=== PATIENT | female | born 1945 | race Caucasian/White ===

== ENCOUNTER 2020-04-18 02:18 | Emergency (ER) | payer MEDICARE, MEDICAID ==
[~2020-04-18] VITALS: Ht 162 cm; Wt 77.0 kg
--- NOTE | 2020-04-18 03:58 | ED Fall/Injury ---
General Chief Complaint: Trauma-Non Activation Stated Complaint: FALL,LOWER BACK PAIN Source: patient Exam Limitations: no limitations History of Present Illness Date Seen by Provider: Apr 18, 2020 Time Seen by Provider: 02:21 Initial Comments This 75-year-old woman presents to the emergency room with complaints of [place] She was going through a handicapped entrance when her walker got hung up on the doorway. She does not recall striking her head and denies any head pain. There is no loss of consciousness. She denies any prodrome. She did not attempt to get up and walk after the fall. She arrives via EMS. Allergies and Home Medications Allergies Coded Allergies: No Known Drug Allergies (Unverified , 04/18/20) Patient Home Medication List Home Medication List Reviewed: Yes Review of Systems Review of Systems Constitutional: no symptoms reported Eyes: No Symptoms Reported Ears, Nose, Mouth, Throat: no symptoms reported Respiratory: no symptoms reported Cardiovascular: no symptoms reported Gastrointestinal: no symptoms reported Genitourinary: no symptoms reported : No Musculoskeletal: see HPI Skin: no symptoms reported Psychiatric/Neurological: No Symptoms Reported Past Tdnhudr-Slboex-Dbxjct Hx Past Med/Social Hx: Reviewed Nursing Past Med/Soc Hx Past Medical History Surgeries: Yes Breast (mastectomy) Respiratory: No Cardiac: No Neurological: No : No Genitourinary: No Gastrointestinal: No Musculoskeletal: No Endocrine: No HEENT: No Cancer: No Psychosocial: No Physical Exam Vital Signs Vital Signs - First Documented 04/18/20 04/18/20 02:20 04:26 Temp 37.0 Pulse 92 Resp 16 B/P (MAP) 177/98 (124) Pulse Ox 97 O2 Delivery Room Air Capillary Refill : Height, Weight, BMI Height: '" Weight: lbs. oz. 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, no motor/sensory deficits, alert, normal mood/affect, oriented x 3 Skin: normal color, warm/dry Baker Coma Score Best Eye Response: (4) Open Spontaneously Best Verbal Response: (5) Oriented Best Motor Response: (6) Obeys Commands Baker Total: 15 Progress/Results/Core Measures Results/Orders My Orders Orders - PRABHU GASPAR MD Ct Pelvis Wo (04/18/20 02:46) Ct Lumbar Spine Wo (04/18/20 02:46) Acetaminophen Tablet (Tylenol Tablet) (04/18/20 04:00) Ibuprofen Tablet (Motrin Tablet) (04/18/20 04:00) Vital Signs/I&O 04/18/20 04/18/20 02:20 04:26 Temp 37.0 37.0 Pulse 92 89 Resp 16 16 B/P (MAP) 177/98 (124) 152/89 (124) Pulse Ox 97 O2 Delivery Room Air Room Air Progress Progress Note : Progress Note CT imaging of the lumbar spine and pelvis revealed no fractures. Patient's pain was treated with ibuprofen and Tylenol and she was dismissed home. Diagnostic Imaging Diagonstic Imaging: CT Plain Films/CT/US/NM/MRI: pelvis, other Comments CT imaging of the pelvis and lumbar spine revealed no fractures. [facility] report reviewed. Departure Impression Primary Impression: Fall on same level Qualified Codes: W18.30XA - Fall on same level, unspecified, initial encounter Additional Impression: Low back pain Qualified Codes: M54.5 - Low back pain Disposition: 01 HOME, SELF-CARE Condition: Improved Departure-Patient Inst. Decision time for Depature: 03:57 Referrals: CHUCK CALVO DO (PCP) Primary Care Physician Patient Instructions: Contusion (DC), Low Back Pain (DC) Add. Discharge Instructions: You may ice affected areas in 20 minute intervals. You may take Tylenol and/or ibuprofen for pain. Follow-up with your primary care provider as needed for any further problems or concerns or for persistent pain. All discharge instructions reviewed with patient and/or family. Voiced understanding. PRABHU GASPAR MD Apr 18, 2020 03:58
[2020-04-18] MEDS ORDERED: IBUPROFEN TABLET 200 MG TAB PO ONE (04:00)
[2020-04-18] MEDS ORDERED: ACETAMINOPHEN 500 MG TAB (TYLENOL) PO ONE (04:00)
[2020-04-18 04:26] VITALS: BP 152/89
--- NOTE | 2020-04-18 07:42 | Diagnostic Imaging Report ---
PROCEDURE: CT lumbar spine without contrast. TECHNIQUE: Multiple contiguous axial images were obtained through the lumbar spine without the use of intravenous contrast. Sagittal and coronal reformations were then performed. Auto Exposure Controls were utilized during the CT exam to meet ALARA standards for radiation dose reduction. INDICATION: Right hip and low back pain post fall. CORRELATION STUDY: None FINDINGS: Rather significant leftward curvature of the lumbar spine. There is rightward subluxation L1 on L2 of approximately 14 mm. Slight asymmetric loss of height along the right aspect of L2 and left aspect of the L1 appearing to be chronic. There is rather severe multilevel degenerative change about the lumbar spine. There is rather significant disc space narrowing at essentially all levels of the lumbar spine. There is partial fusion along the left aspect of the T12 on L1. Vacuum disc phenomena essentially at all levels. Posterior elements appear to be intact and in normal alignment. There is rather significant disc and osteophyte formation. This results in multifocal areas of rather severe spinal stenosis at L3-L4, L2-L3 and L4-L5 level. Additional areas of foraminal narrowing present. There also appears to be rather prominent epidural lipomatosis may be accentuating the spinal stenosis. There is incidental note made of a rather prominent hiatal hernia. IMPRESSION: 1. No definitive evidence for acute findings of the lumbar spine. 2. There is rather significant severity degenerative changes involving essentially all levels of the lumbar spine. A preliminary report was provided by [facility]. Dictated by: Dictated on workstation # [id number]
--- NOTE | 2020-04-18 07:46 | Diagnostic Imaging Report ---
PROCEDURE: CT pelvis without contrast. TECHNIQUE: Multiple contiguous axial images were obtained through the pelvis without the use of intravenous contrast. Sagittal and coronal reformations were performed. Auto Exposure Controls were utilized during the CT exam to meet ALARA standards for radiation dose reduction. INDICATION: Sacral pain post fall CORRELATION STUDY: None FINDINGS: Rather prominent bony demineralization is present. There is advanced degenerative change of the lower lumbar spine. There are also degenerative changes of both hips. There is no evidence for an acute fracture. Sacroiliac joints overall appear to be fairly well maintained. Moderate severity fecal retention is present. There is no significant pelvic hematoma or significant soft tissue hematoma. Urinary bladder unremarkable. Uterus is absent. IMPRESSION: 1. Negative for acute displaced pelvic fracture. A preliminary report was provided by [facility]. Dictated by: Dictated on workstation # [id number]
== END 2020-04-18 04:26 | disposition home or self-care (01) ==
LOC: EDUNIT# 02:18 → ER 02:21
DX: M54.5 Low back pain (principal); W18.30XA Fall on same level, unspecified, initial encounter
CPT/HCPCS: 72131; 72192